=== PATIENT | female | born 1990 | race Hispanic/Latino ===

== ENCOUNTER 2019-02-09 19:05 | Emergency (ER) | payer OTHER, SELFPAY ==
[2019-02-09] MEDS ORDERED: CODEINE 30MG/APAP 300MG TAB ONE (20:22)
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
--- NOTE | 2019-02-09 20:45 | EDPHYS ---
Physician Documentation [facility] Name: Katarzyna Conde Age: 28 yrs Sex: Female : 1990 Arrival Date: 02/09/2019 Time: 19:07 Bed 17 Private MD: ED Physician Berny Jimenez HPI: 02/09 19:44 This 28 yrs old Female presents to ER via Ambulatory with complaints of ma2 Headache, Weakness. 19:44 The patient complains of pain to the forehead. Onset: The symptoms/episode ma2 began/occurred gradually, 1 day(s) ago. Associated signs and symptoms: Pertinent positives: Pertinent negatives: dizziness, paresthesias, vision loss, weakness. Severity of symptoms: At its worst the pain was moderate. Headache History: Denies prior headaches. 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 - Social history:: Smoking status: Patient uses tobacco products, denies chronic smoking, but will smoke occasionally, Patient/guardian denies using alcohol, street drugs, The patient lives with family. - Ebola Screening: : Patient denies travel to an Ebola-affected area in the 21 days before illness onset No symptoms or risks identified at this time. - Family history:: not pertinent. ROS: 19:44 Constitutional: Negative for fever, chills, and weight loss, Cardiovascular: Negative ma2 for chest pain, palpitations, and edema, Respiratory: Negative for shortness of breath, cough, wheezing, and pleuritic chest pain, Abdomen/GI: Negative for abdominal pain, nausea, diarrhea, and constipation. 19:44 Neuro: Positive for headache, Negative for gait disturbance, seizure activity, syncope, weakness. 19:44 All other systems are negative. Exam: 19:44 Constitutional: This is a well developed, well nourished patient who is awake, alert, ma2 and in no acute distress. Head/Face: Normocephalic, atraumatic. Eyes: Pupils equal round and reactive to light, extra-ocular motions intact. Lids and lashes normal. Conjunctiva and sclera are non-icteric and not injected. Cornea within normal limits. Periorbital areas with no swelling, redness, or edema. Chest/axilla: Normal chest wall appearance and motion. Nontender with no deformity. No lesions are appreciated. Cardiovascular: Regular rate and rhythm with a normal S1 and S2. No gallops, murmurs, or rubs. Normal PMI, no JVD. No pulse deficits. Respiratory: Lungs have equal breath sounds bilaterally, clear to auscultation and percussion. No rales, rhonchi or wheezes noted. No increased work of breathing, no retractions or nasal flaring. Abdomen/GI: Soft, non-tender, with normal bowel sounds. No distension or tympany. No guarding or rebound. No evidence of tenderness throughout. Skin: Warm, dry with normal turgor. Normal color with no rashes, no lesions, and no evidence of cellulitis. MS/ Extremity: Pulses equal, no cyanosis. Neurovascular intact. Full, normal range of motion. Neuro: Awake and alert, GCS 15, oriented to person, place, time, and situation. Cranial nerves II-XII grossly intact. Motor strength 5/5 in all extremities. Sensory grossly intact. Cerebellar exam normal. Normal gait. Vital Signs: 19:16 BP 126 / 63; Pulse 63; Resp 18; Temp 99.0(TE); Pulse Ox 100% on R/A; Weight 97.52 kg ed1 (R); Height 5 ft. 6 in. (167.64 cm) (R); Pain 6/10; 20:45 BP 119 / 84; Pulse 63; Resp 19; Pulse Ox 99% ; ea 19:16 Body Mass Index 34.70 (97.52 kg, 167.64 cm) ed1 Elva Coma Score: 19:44 Eye Response: spontaneous(4). Verbal Response: oriented(5). Motor Response: obeys ma2 commands(6). Total: 15. MDM: 19:32 Patient medically screened. ma2 19:44 Differential diagnosis: subdural hematoma, tension headache, traumatic injuries. ma2 20:42 Data reviewed: vital signs, nurses notes. Counseling: I had a detailed discussion with ma2 the patient and/or guardian regarding: the historical points, exam findings, and any diagnostic results supporting the discharge/admit diagnosis, the presence of at least one elevated blood pressure reading (>120/80) during this emergency department visit, the need for outpatient follow up. Response to treatment: the patient's symptoms have resolved after treatment. 02/09 19:42 Order name: CT Head Brain wo Cont; Complete Time: 20:42 ma2 02/09 19:42 Order name: CT Facial Bones W/O Con; Complete Time: 20:42 ma2 Administered Medications: 20:16 Drug: Tylenol #3 (300 mg-30 mg) 1 tablet Route: PO; ea Disposition: 02/09/19 20:44 Discharged to Home. Impression: Concussion. - Condition is Stable. - Prescriptions for Tylenol- Codeine #3 300-30 mg Oral Tablet - take 2 tablet by ORAL route every 6 hours As needed; 30 tablet. - Medication Reconciliation Form, Thank You Letter, Antibiotic Education, Prescription Opioid Use form. - Follow up: Private Physician; When: Tomorrow; Reason: Continuance of care. Signatures: Dispatcher [employer] EDLeyla Gomez RN RN ed1 Jesusita Larson RN RN Berny Trimble MD MD ma2 Corrections: (The following items were deleted from the chart) 21:16 20:44 02/09/2019 20:44 Discharged to Home. Impression: Concussion. Condition is Stable. ea Prescriptions for Tylenol-Codeine #3 300-30 mg Oral Tablet - take 2 tablet by ORAL route every 6 hours As needed; 30 tablet. and Forms are Medication Reconciliation Form, Thank You Letter, Antibiotic Education, Prescription Opioid Use. Follow up: Private Physician; When: Tomorrow; Reason: Continuance of care. ma2
[2019-02-09 22:30] VITALS: BP 126/63; TEMP 99; O2SAT 100
== END 2019-02-09 21:16 | disposition home or self-care (01) ==
LOC: ER 19:05
DX: S06.0X0A Concussion without loss of consciousness, initial encounter (principal)
CPT/HCPCS: 70450; 70486; 76377; 99283

== ENCOUNTER 2019-12-25 22:56 | Emergency (ER) | payer BC, SELFPAY ==
[2019-12-25] MEDS ORDERED: NA CHLORIDE 0.9% 1,000 ML ONE (23:36)
[2019-12-25 23:54] LABS: Absolute Lymphocytes (CBC) 2.4 K/uL (0.7-4.9); Basophils % 0.5 % (0-1.3); Hematocrit 37.8 % (36.0-45.0); Lymphocytes % 21.9 % (15.3-44.8); MPV 9.4 fL (7.6-11.3); RBC Red Blood Cell Count 4.55 M/uL (3.86-4.86)
[2019-12-26 00:44] LABS: BUN Blood Urea Nitrogen 8 mg/dL (7-18); Bicarbonate 22 mmol/L (21-32); Glucose Level 129 mg/dL (74-106); HCG, Quantitative 80428 mIU/mL (1-3); Potassium 3.5 mmol/L (3.5-5.1); Sodium Level 137 mmol/L (136-145)
[2019-12-26 00:47] LABS: Urine Glucose NEGATIVE (NEG); Urine Specific Gravity 1.015 (1.005-1.030)
[2019-12-26 00:48] LABS: Urine Blood 2+ (NEG); Urine Protein NEGATIVE (NEG)
--- NOTE | 2019-12-26 03:45 | ER ---
Nurse's Notes [facility] Name: Katarzyna Conde Age: 29 yrs Sex: Female : 1990 Arrival Date: 12/25/2019 Time: 22:57 Bed 23 Private MD: Diagnosis: related conditions, unspecified, first trimester;Threatened Presentation: 12/24 23:12 Chief complaint: Patient states: she is 9 weeks started having lower abdominal bb and back pain around 1300 today then about 20 minutes ago she started vaginal bleeding with a large clot. Coronavirus screen: Patient denies fever greater than 100.4F, cough, shortness of breath, or difficulty breathing. Proceed with normal triage process. Ebola Screen: No symptoms or risks identified at this time. Initial Sepsis Screen: Does the patient meet any 2 criteria? No. Patient's initial sepsis screen is negative. Does the patient have a suspected source of infection? No. Patient's initial sepsis screen is negative. Risk Assessment: Do you want to hurt yourself or someone else? Patient reports no desire to harm self or others. Onset of symptoms was December 25, 2019. 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 - Social history:: Smoking status: Patient denies any tobacco usage or history of. - Family history:: not pertinent. Screenin:49 Abuse screen: Denies threats or abuse. Denies injuries from another. Nutritional lp1 screening: No deficits noted. Tuberculosis screening: No symptoms or risk factors identified. Fall Risk None identified. Assessment: 23:45 General: Appears in no apparent distress. Behavior is calm, cooperative, appropriate lp1 for age. Pain: Complains of pain in lumbar area and suprapubic area Pain currently is 7 out of 10 on a pain scale. Quality of pain is described as aching, crampy. Neuro: Level of Consciousness is awake, alert, obeys commands, Oriented to person, place, time, situation. Cardiovascular: Patient's skin is warm and dry. Respiratory: Respiratory effort is even, unlabored. GI: Abdomen is non-distended. : Reports vaginal bleeding that is bright red, with clots. EENT: No signs and/or symptoms were reported regarding the EENT system. Derm: Skin is pink, warm \T\ dry. Musculoskeletal: No deficits noted. 23:45 Obstetrical Assessment: General assessment: awake and alert, skin warm and dry, lp1 respirations even and unlabored, Patient reports abdominal cramping, back pain. 12/25 01:00 Reassessment: Patient appears in no apparent distress at this time. Patient is alert, lp1 oriented x 3, equal unlabored respirations, skin warm/dry/pink. Patient aware of pending ultrasound. 02:00 Reassessment: Patient appears in no apparent distress at this time. Patient is alert, lp1 oriented x 3, equal unlabored respirations, skin warm/dry/pink. Patient aware of pending ultrasound. 04:03 Reassessment: Patient appears in no apparent distress at this time. Patient lp1 demonstrates understanding of follow up needed; Dr. Sims at bedside to discuss results with patient and give lab results for follow up. Vital Signs: 12/24 23:12 BP 119 / 61; Pulse 61; Resp 16 S; Temp 98.5; Pulse Ox 99% on R/A; Weight 102.06 kg (R); bb Height 5 ft. 6 in. (167.64 cm) (R); Pain 3/10; 12/25 00:00 BP 103 / 52; Pulse 57; Resp 16; Pulse Ox 100% on R/A; lp1 00:45 BP 110 / 52; Pulse 53; Resp 16; Pulse Ox 100% on R/A; lp1 01:45 BP 106 / 55; Pulse 59; Resp 16; Pulse Ox 100% on R/A; lp1 03:00 BP 107 / 49; Pulse 56; Resp 16; Pulse Ox 100% on R/A; lp1 04:03 BP 109 / 71; Pulse 59; Resp 16; Pulse Ox 100% on R/A; lp1 12/24 23:12 Body Mass Index 36.32 (102.06 kg, 167.64 cm) ED Course: 12/24 22:57 Patient arrived in ED. ds1 23:00 Alexandre Sims MD is Attending Physician. mark 23:14 Triage completed. bb 23:14 Arm band placed on Patient placed in an exam room, on a stretcher, on pulse oximetry. bb 23:29 Deanna Sethi, RN is Primary Nurse. lp1 23:30 Patient has correct armband on for positive identification. Placed in gown. Bed in low lp1 position. Call light in reach. Pulse ox on. NIBP on. 23:45 Initial lab(s) drawn, by me, sent to lab. T\T\S collected, blood band applied to patient. lp1 Inserted saline lock: 20 gauge in right antecubital area, using aseptic technique. Blood collected. 12/25 02:12 No provider procedures requiring assistance completed. lp1 03:45 Adarsh Savage MD is Referral Physician. mark 04:04 IV discontinued, No redness/swelling at site. Pressure dressing applied. lp1 04:25 US Transvaginal Ob In Process Unspecified. EDMS Administered Medications: 12/24 23:50 Drug: NS 0.9% 1000 ml Route: IV; Rate: 1 bolus; Site: right antecubital; lp1 12/25 01:45 Follow up: IV Status: Completed infusion; IV Intake: 1000ml lp1 Point of Care Testing: Urine : 00:13 hCG Reading: Positive; Control Reading: Positive; lp1 Intake: 01:45 IV: 1000ml; Total: 1000ml. lp1 Outcome: 03:45 Discharge ordered by . mark 04:04 Discharged to home ambulatory. lp1 04:04 Condition: good 04:04 Discharge instructions given to patient, Instructed on discharge instructions, follow up and referral plans. medication usage, Demonstrated understanding of instructions, follow-up care, medications, Prescriptions given X 1. 04:06 Patient left the ED. lp1 Signatures: Dispatcher [employer] EDMS Alexandre Sims MD MD cha Sanford, Demi ds1 Sammie Lai RN RN bb Deanna Sethi, MATT RN lp1
--- NOTE | 2019-12-26 03:45 | EDPHYS ---
Physician Documentation [facility] Name: Katarzyna Conde Age: 29 yrs Sex: Female : 1990 Arrival Date: 12/25/2019 Time: 22:57 Bed 23 Private MD: ED Physician Alexandre Sims HPI: 12/24 23:12 This 29 yrs old Female presents to ER via Unassigned with complaints of mark Vaginal Bleeding, + Preg <12wks. 23:12 The patient presents to the emergency department with abdominal pain, of the suprapubic mark area, right lower quadrant and left lower quadrant. The estimated gestational age is 12 weeks. course: care: at a clinic, private OB physician. Previous pregnancies: in previous pregnancies patient has had vaginal delivery. Associated signs and symptoms: The patient has no apparent associated signs or symptoms. The patient has not experienced similar symptoms in the past. 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 - Social history:: Smoking status: Patient denies any tobacco usage or history of. - Family history:: not pertinent. ROS: 23:12 Constitutional: Negative for fever, chills, and weight loss, Eyes: Negative for injury, mark pain, redness, and discharge, ENT: Negative for injury, pain, and discharge, Neck: Negative for injury, pain, and swelling, Cardiovascular: Negative for chest pain, palpitations, and edema, Respiratory: Negative for shortness of breath, cough, wheezing, and pleuritic chest pain, Back: Negative for injury and pain, MS/Extremity: Negative for injury and deformity, Skin: Negative for injury, rash, and discoloration, Neuro: Negative for headache, weakness, numbness, tingling, and seizure, Psych: Negative for depression, anxiety, suicide ideation, homicidal ideation, and hallucinations, Allergy/Immunology: Negative for hives, rash, and allergies, Endocrine: Negative for neck swelling, polydipsia, polyuria, polyphagia, and marked weight changes, Hematologic/Lymphatic: Negative for swollen nodes, abnormal bleeding, and unusual bruising. 23:12 Abdomen/GI: Positive for abdominal pain, of the right lower quadrant and left lower quadrant. 23:12 : Positive for pelvic pain, vaginal bleeding, of the suprapubic area, right inguinal area and left inguinal area. Exam: 23:12 Constitutional: This is a well developed, well nourished patient who is awake, alert, mark and in no acute distress. Head/Face: Normocephalic, atraumatic. Eyes: Pupils equal round and reactive to light, extra-ocular motions intact. Lids and lashes normal. Conjunctiva and sclera are non-icteric and not injected. Cornea within normal limits. Periorbital areas with no swelling, redness, or edema. ENT: Nares patent. No nasal discharge, no septal abnormalities noted. Tympanic membranes are normal and external auditory canals are clear. Oropharynx with no redness, swelling, or masses, exudates, or evidence of obstruction, uvula midline. Mucous membranes moist. Neck: Trachea midline, no thyromegaly or masses palpated, and no cervical lymphadenopathy. Supple, full range of motion without nuchal rigidity, or vertebral point tenderness. No Meningismus. Chest/axilla: Normal chest wall appearance and motion. Nontender with no deformity. No lesions are appreciated. Cardiovascular: Regular rate and rhythm with a normal S1 and S2. No gallops, murmurs, or rubs. Normal PMI, no JVD. No pulse deficits. Respiratory: Lungs have equal breath sounds bilaterally, clear to auscultation and percussion. No rales, rhonchi or wheezes noted. No increased work of breathing, no retractions or nasal flaring. Back: No spinal tenderness. No costovertebral tenderness. Full range of motion. Skin: Warm, dry with normal turgor. Normal color with no rashes, no lesions, and no evidence of cellulitis. MS/ Extremity: Pulses equal, no cyanosis. Neurovascular intact. Full, normal range of motion. Neuro: Awake and alert, GCS 15, oriented to person, place, time, and situation. Cranial nerves II-XII grossly intact. Motor strength 5/5 in all extremities. Sensory grossly intact. Cerebellar exam normal. Normal gait. Psych: Awake, alert, with orientation to person, place and time. Behavior, mood, and affect are within normal limits. 23:12 Abdomen/GI: Inspection: abdomen appears normal, Bowel sounds: normal, Palpation: moderate abdominal tenderness, in the suprapubic area, right lower quadrant and left lower quadrant, Liver: no appreciated palpable abnormalities, Hernia: not appreciated. Vital Signs: 23:12 BP 119 / 61; Pulse 61; Resp 16 S; Temp 98.5; Pulse Ox 99% on R/A; Weight 102.06 kg (R); bb Height 5 ft. 6 in. (167.64 cm) (R); Pain 3/10; 12/25 00:00 BP 103 / 52; Pulse 57; Resp 16; Pulse Ox 100% on R/A; lp1 00:45 BP 110 / 52; Pulse 53; Resp 16; Pulse Ox 100% on R/A; lp1 01:45 BP 106 / 55; Pulse 59; Resp 16; Pulse Ox 100% on R/A; lp1 03:00 BP 107 / 49; Pulse 56; Resp 16; Pulse Ox 100% on R/A; lp1 04:03 BP 109 / 71; Pulse 59; Resp 16; Pulse Ox 100% on R/A; lp1 04 23:12 Body Mass Index 36.32 (102.06 kg, 167.64 cm) bb MDM: 12/24 23:00 Patient medically screened. [facility] 23:15 Data reviewed: vital signs, nurses notes, lab test result(s), EKG, radiologic studies, mark ultrasound. 12/24 23:02 Order name: Quantitative Hcg; Complete Time: 00:[address] [facility] 12/24 23:02 Order name: Abo/rh Typing; Complete Time: 00:[address] [facility] 12/24 23:02 Order name: Basic Metabolic Panel; Complete Time: 00:[address] [facility] 12/24 23:02 Order name: CBC with Diff; Complete Time: 00:[address] [facility] 12/24 23:02 Order name: Urine Culture [facility] 12/25 00:15 Order name: Urine Dipstick--Ancillary (enter results); Complete Time: 00:57 [facility] 04/03 23:02 Order name: Urine Test (obtain specimen); Complete Time: 00:[address] [facility] 12/24 23:02 Order name: IV Saline Lock; Complete Time: 23:[address] [facility] 12/24 23:02 Order name: Labs collected and sent; Complete Time: 23:[address] [facility] 12/24 23:02 Order name: NPO; Complete Time: 23:[address] [facility] 12/24 23:02 Order name: Urine Dipstick-Ancillary (obtain specimen); Complete Time: 00:[address] [facility] 12/24 23:02 Order name: US Transvaginal Ob [facility] 12/25 00:15 Order name: Urine --Ancillary (enter results); Complete Time: 00:57 mw2 Administered Medications: 23:50 Drug: NS 0.9% 1000 ml Route: IV; Rate: 1 bolus; Site: right antecubital; lp1 12/25 01:45 Follow up: IV Status: Completed infusion; IV Intake: 1000ml lp1 Point of Care Testing: Urine : 00:13 hCG Reading: Positive; Control Reading: Positive; lp1 Disposition: 12/26/19 03:45 Discharged to Home. Impression: related conditions, unspecified, first trimester, Threatened . - Condition is Stable. - Discharge Instructions: Threatened Miscarriage, Vaginal Bleeding During , First Trimester, First Trimester of , [id number], Threatened Miscarriage, [id number], Pelvic Rest, Vaginal Bleeding During , First Trimester, [id number]. - Prescriptions for Vitamin 27- 0.8 mg Oral Tablet - take 1 tablet by ORAL route once daily; 30 tablet. - Medication Reconciliation Form, Thank You Letter, Antibiotic Education, Prescription Opioid Use form. - Follow up: Private Physician; When: 2 - 3 days; Reason: Recheck today's complaints, Continuance of care, Re-evaluation by your physician. Follow up: Adarsh Savage; When: 2 - 3 days; Reason: Recheck today's complaints, Re-evaluation by your physician. - Problem is new. - Symptoms have improved. Signatures: Dispatcher [employer] EDAlexandre Deal MD MD cha Ballard, Brenda, RN RN Deanna Lucas RN RN lp1 Corrections: (The following items were deleted from the chart) 04:06 03:45 12/26/2019 03:45 Discharged to Home. Impression: related conditions, lp1 unspecified, first trimester; Threatened . Condition is Stable. Discharge Instructions: Threatened Miscarriage, Vaginal Bleeding During , First Trimester, First Trimester of , [id number], Threatened Miscarriage, [id number], Pelvic Rest, Vaginal Bleeding During , First Trimester, [id number]. Prescriptions for Vitamin 27-0.8 mg Oral Tablet - take 1 tablet by ORAL route once daily; 30 tablet. and Forms are Medication Reconciliation Form, Thank You Letter, Antibiotic Education, Prescription Opioid Use. Follow up: Private Physician; When: 2 - 3 days; Reason: Recheck today's complaints, Continuance of care, Re-evaluation by your physician. Follow up: Adarsh Savage; When: 2 - 3 days; Reason: Recheck today's complaints, Re-evaluation by your physician. Problem is new. Symptoms have improved. mark
[2019-12-26 04:15] VITALS: TEMP 98.5
[2019-12-26 04:17] VITALS: O2SAT 100
[2019-12-26 04:23] VITALS: BP 109/71
--- NOTE | 2019-12-27 13:13 | RAD REPORT ---
EXAM DESCRIPTION: US - Transvaginal OB - 12/26/2019 4:25 am CLINICAL HISTORY: ABD CRAMPING, COMPARISON: None. TECHNIQUE: High-resolution grayscale endovaginal sonographic evaluation of the pelvis. Color flow ut ilized. FINDINGS: Uterus: Anteverted, 12.7 x 6.2 x 3.9 cm. Endometrium: Intrauterine gestational sac within the fundus with a pole and yolk sac. Average s ac diameter is 2.7 cm corresponding to minimal 7 week, 5 day gestation. Average embryo crown-rump linda gth is 1.41 cm corresponding to 7 week, 5 day gestation . Embryonic heart tones are detected at 166 t o 170 bpm. No subchorionic bleed. Right ovary: Not visualized. Left ovary: 2.0 x 2.5 x 2.0 cm. Small follicles are present in the left ovary. Left ovarian flow is p resent. Peritoneum: Trace pelvic free fluid. IMPRESSION: 1. Uncomplicated single live intrauterine 7 week, 5 day gestation. DESTINY: 08/08/2020. Electronically signed by: Juliana Garcia DO 12/26/2019 4:53 AM CDT Due to temporary technical issues with the PACS/Fluency reporting system, reports are being signed by the in house radiologist as a courtesy to ensure prompt reporting. The interpreting radiologist is f ully responsible for the content of the report.
== END 2019-12-26 04:06 | disposition home or self-care (01) ==
LOC: ER 22:56
DX: O20.0 Threatened abortion (principal); Z3A.09 9 weeks gestation of pregnancy
CPT/HCPCS: 96361; 87088; 85025; 87086; 80048; 36415; 86900; 81025; 86901; 84702; 81003; 76817; 96360; 99284; J7030